=== PATIENT | female | born 1950 | race Caucasian/White ===

== ENCOUNTER 2019-06-01 06:50 | Day surgery (SDC) | payer MEDICARE, OTHER ==
[~2019-06-01] VITALS: Ht 157.5 cm; Wt 105.4 kg
[~2019-06-01 06:50] MED LIST: ALBU83IN INH; AMOX500C PO; CART120C PO; DIPH25CA32 PO; ELIQ5TAB PO; FLEC150T PO; FLON1SPR; LEVO137T2 PO; LIDOCAINE 1% MDV 20ML VIAL SQ PRN; MAPA325T2 PO; MELO15TA28 PO; PANT40TA3 PO; SYMB16INH INH; VENTAER INH; VITA-158 PO
[2019-06-01] MEDS ORDERED: LR 1,000 ML IV ONE (07:00)
[2019-06-01] MEDS ORDERED: fentaNYL 250 MCG/5 ML INJECTION (J3010) As Ordered ONE (08:30)
[2019-06-01] MEDS ORDERED: dexameTHASONE 4 MG/ML 1ML VIAL (J1100) As Ordered ONE (08:30)
[2019-06-01] MEDS ORDERED: ONDANSETRON 4MG/2ML VIAL (J2405) As Ordered ONE ×2 (08:30→12:31)
[2019-06-01] MEDS ORDERED: PROPOFOL 200 MG/20 ML VIAL As Ordered ONE (08:30)
[2019-06-01] MEDS ORDERED: ROCURONIUM BROMIDE 50 MG/5 ML VIAL As Ordered ONE (08:30)
[2019-06-01] MEDS ORDERED: MIDAZOLAM INJ 2 MG/2 ML VIAL (J2250) As Ordered ONE (08:30)
[2019-06-01] MEDS ORDERED: LIDOCAINE 2% INJ 100 MG/5 ML SDV (FOR ANES.) As Ordered ONE (08:30)
[2019-06-01] MEDS ORDERED: BUPIVACAINE/EPIN 0.25% 30 ML VIAL As Ordered ONE (10:36)
[2019-06-01] MEDS ORDERED: LACRILUBE (AKWA TEARS) OPHTH OINT 3.5 GM As Ordered ONE (11:00)
[2019-06-01] MEDS ORDERED: ACETAMINOPHEN 1000MG 100ML IV BTL (OFIRMEV) (J0131 PER 10MG) As Ordered ONE (11:28)
[2019-06-01] MEDS ORDERED: KETOROLAC 60 MG/2 ML VIAL (J1885) As Ordered ONE (11:29)
[2019-06-01] MEDS ORDERED: fentaNYL 100 MCG/2 ML INJECTION (J3010) As Ordered ONE (12:32)
[2019-06-01] MEDS ORDERED: PERCOCET 5MG/325MG TAB As Ordered ONE (12:32)
[2019-06-01] MEDS: PERCOCET 5MG/325MG TAB PO PRN ×2 (12:35→13:05)
[2019-06-01] MEDS: fentaNYL 100 MCG/2 ML INJECTION (J3010) IV PRN ×4 (12:35→12:50)
[2019-06-01] MEDS ORDERED: LR 1,000 ML IV SCH (12:45)
[2019-06-01] MEDS ORDERED: NORCO, ANEXSIA 5/325MG TABLET (HYDROcodone/ACETAMINOPHEN) PO PRN (13:46)
[2019-06-01 14:55] VITALS: BP 142/55
[2019-06-01] MEDS ORDERED: ONDANSETRON 4MG/2ML VIAL (J2405) IV PRN (15:00)
--- NOTE | 2019-06-02 08:18 | RO ---
DATE OF PROCEDURE: 06/01/2019 PREOPERATIVE DIAGNOSIS: Biliary dyskinesia. POSTOPERATIVE DIAGNOSIS: Biliary dyskinesia. PROCEDURE: Robotic cholecystectomy. SURGEON: Dr. Acosta Quinonez PRECISION FARMING SPECIALIST: Gloria Carrasco ANESTHESIA: General. ESTIMATED BLOOD LOSS: 5. COMPLICATIONS: None. INDICATIONS FOR PROCEDURE: The patient is a 68-year-old female who presents with right upper quadrant pain and found to have biliary dyskinesia. Recommendation was to proceed with robotic cholecystectomy. Risks and benefits of the procedure not limited to, but including bleeding, infection, hernia formation, damage to surrounding structures, need for further surgery were discussed in detail with the patient, informed consent was obtained and the procedure was planned. DESCRIPTION OF PROCEDURE: The patient was brought back to operating room seven after sufficient sedation and the abdomen was sterilely prepped and draped. Next, a time out done to confirm proper patient and proper procedure. Following that, an 8 mm incision made in the left lower quadrant, Veress needle was inserted and the abdomen was insufflated to 15 mmHg. Veress needle was then removed. An 8 mm OptiVu robotic port was used to gain access to the abdomen. Once the abdomen was entered, two more 8 mm ports were placed, one left of midline and just superior to the umbilicus and another one right of midline at about the level of the umbilicus. A fourth incision was made in the right midclavicular line just below the costal margin. Once all ports were placed, the robot was docked to the ports. Next, the fundus of the gallbladder was elevated up towards the right shoulder. The cystic duct and cystic artery were dissected free using a combination of blunt and sharp dissection. They were both doubly clipped and cut. The gallbladder was then taken from the gallbladder fossa using electrocautery. It was placed inside of an 8 mm EndoCatch bag and brought out through the most lateral port site on the right. Once the gallbladder was removed, 2-0 V-Loc suture was used to close the fascial defect at the port site on the far right which had to be dilated to remove the gallbladder. Once this was completed, the abdomen was desufflated. Skin incisions were closed with 4-0 Vicryl subcuticular sutures. The abdomen cleaned and dried. Steri-Strips, 4x4 and tape were applied, thus ending the procedure.
== END 2019-06-01 15:28 | disposition home or self-care (01) ==
LOC: M SDC 06:50
PROVIDERS: ATTEND Surgery
DX: K81.1 Chronic cholecystitis (principal); K82.4 Cholesterolosis of gallbladder; I48.91 Unspecified atrial fibrillation; I10 Essential (primary) hypertension; K21.9 Gastro-esophageal reflux disease without esophagitis; E03.9 Hypothyroidism, unspecified; K58.8 Other irritable bowel syndrome; J44.9 Chronic obstructive pulmonary disease, unspecified; Z88.5 Allergy status to narcotic agent; Z88.2 Allergy status to sulfonamides; Z79.01 Long term (current) use of anticoagulants; Z79.899 Other long term (current) drug therapy; Z79.51 Long term (current) use of inhaled steroids
CPT/HCPCS: 47562; 88304; J0131; J1100; J1885; J2250; J2405; J3010

== ENCOUNTER → 2019-07-06 | Outpatient (CLI) | payer OTHER ==
[~2019-07-06] MED LIST changes: -LIDOCAINE 1% MDV 20ML VIAL SQ PRN
[2019-07-06 11:55] LABS: APPEARANCE, URINE CLEAR (CLEAR); BACTERIA, URINE AUTO NEGATIVE (NEGATIVE); BASO % 0.6 % (0.0-1.0); BILIRUBIN, URINE AUTO NEGATIVE (NEGATIVE); BLOOD, URINE BLOOD NEGATIVE (NEGATIVE); COLOR, URINE STRAW (YELLOW); EOS # 0.2 10^3/uL (0.0-0.5); EOS % 2.7 % (0.0-3.0); GLUCOSE, URINE (UA) AUTO NEGATIVE (NEGATIVE); HEMATOCRIT 38.8 % (36.0-47.0); HEMOGLOBIN 12.3 g/dl (12.0-15.5); KETONE, URINE AUTO NEGATIVE (NEGATIVE); LEUKOCYTE ESTERASE, URINE AUTO NEGATIVE (NEGATIVE); LYMPH # 2.1 10^3/uL (1.5-5.0); MEAN CORPUSCULAR HEMOGLOBIN 29.6 pg (27.0-33.0); MEAN CORPUSCULAR HGB CONC 31.7 g/dl (32.0-36.5); MEAN CORPUSCULAR VOLUME 93.3 fl (80.0-96.0); MONO # 0.6 10^3/uL (0.0-0.8); MONO % 9.1 % (0.0-5.0); MUCUS, URINE SMALL (NEGATIVE); NEUTROPHILS # 3.5 10^3/uL (1.5-8.5); NEUTROPHILS % 54.3 % (36.0-66.0); NITRITE, URINE AUTO NEGATIVE (NEGATIVE); PLATELET COUNT, AUTOMATED 280 10^3/uL (150-450); PROTEIN, URINE AUTO NEGATIVE (NEGATIVE); RBC, URINE AUTO 0 /HPF (0-3); RED BLOOD COUNT 4.16 10^6/uL (4.00-5.40); SPECIFIC GRAVITY URINE AUTO 1.009 (1.002-1.035); SQUAMOUS EPITHELIAL CELL UR AU 1 /HPF (0-6); UROBILINOGEN, URINE AUTO 0.2 mg/dL (0.0-2.0); WBC, URINE AUTO 2 /HPF (0-3); WHITE BLOOD COUNT 6.4 10^3/uL (4.0-10.0)
--- NOTE | 2019-07-06 12:23 | REP ---
Clinical: Bilateral hand pain. Technique: AP, lateral, bilateral oblique views of the right and left hand. Findings: Generalized age-related changes are appreciated. No overt osteoarthritic or inflammatory arthritic changes noted. No acute fracture dislocation. Surrounding soft tissues are unremarkable. Impression: Generalized age-related changes. Electronically Signed by Los Samuels MD 07/06/2019 12:14 P
[2019-07-06 12:32] LABS: ERYTHROCYTE SEDIMENTATION RATE 39 mm/hr (0-30)
[2019-07-06 12:35] LABS: ALBUMIN 3.8 GM/DL (3.2-5.2); ALT/SGPT 15 U/L (12-78); BILIRUBIN,TOTAL 0.4 MG/DL (0.2-1.0); BLOOD UREA NITROGEN 9 MG/DL (7-18); C REACTIVE PROTEIN QUANTITATIV 1.09 MG/DL (0.00-0.30); CALCIUM LEVEL 9.4 MG/DL (8.8-10.2); CARBON DIOXIDE LEVEL 29 MEQ/L (21-32); CHLORIDE LEVEL 106 MEQ/L (98-107); COMPLEMENT C3 149 MG/DL (90-180); COMPLEMENT C4 31 MG/DL (10-40); CPK CREATINE PHOSPHOKINASE 130 U/L (26-192); CREATININE FOR GFR 0.67 MG/DL (0.55-1.30); GLOMERULAR FILTRATION RATE > 60.0 (>45); GLUCOSE, FASTING 77 MG/DL (70-100); POTASSIUM SERUM 4.1 MEQ/L (3.5-5.1); RHEUMATOID FACTOR QUANT < 10.0 IU/ML (<15.0); SODIUM LEVEL 140 MEQ/L (136-145); THYROID STIMULATING HORMONE 0.383 uIU/ML (0.358-3.740); TOTAL PROTEIN 7.2 GM/DL (6.4-8.2)
== END ==
LOC: M LAB 10:59
PROVIDERS: ATTEND Internal Medicine Rheumatology
DX: M79.643 Pain in unspecified hand (principal); G89.29 Other chronic pain

== ENCOUNTER → 2025-07-05 | Outpatient (CLI) | payer OTHER ==
[~2025-07-05] MED LIST changes: +ALBU2.5V10 INH; -ALBU83IN INH; +DIPH-435 PO; -DIPH25CA32 PO; -MAPA325T2 PO; +MAPA325T8 PO; +PANT40TA29 PO; -PANT40TA3 PO
== END ==
LOC: M LAB 13:31
PROVIDERS: ATTEND Allergy & Immunology
DX: D80.1 Nonfamilial hypogammaglobulinemia (principal)